=== PATIENT | male | born 1970 | race Hispanic/Latino ===

== ENCOUNTER 2017-12-10 00:32 | Emergency (ER) | payer OTHER ==
[2017-12-10] MEDS ORDERED: ONDANSETRON HCL MDV 20ML 2 MG/ML VIAL ONE (00:42)
[2017-12-10] MEDS ORDERED: SUCRALFATE 1 GM TABLET ONE (00:43)
[2017-12-10] MEDS ORDERED: ACETAMINOPHEN 325 MG TAB ONE (00:43)
[2017-12-10 01:07] LABS: BASOPHILS % (AUTO) 0.2 % (0.0-5.0); EOSINOPHILS % (AUTO) 1.4 % (0.0-8.0); HEMATOCRIT 42.4 % (42-54); LYMPHOCYTES % (AUTO) 6.2 % (21.0-51.0); MEAN CORPUSCULAR HEMOGLOBIN 28.4 pg (27.0-33.0); MEAN CORPUSCULAR HGB CONC 33.2 g/dL (32.0-36.0); MEAN CORPUSCULAR VOLUME 85.5 fL (79-99); MONOCYTES % (AUTO) 6.8 % (3.0-13.0); NEUTROPHILS % (AUTO) 85.4 % (40.0-77.0); PLATELET COUNT (AUTO) 238 K/uL (130-400); RED BLOOD CELL COUNT(AUTO) 4.96 MIL/uL (4.50-6.20); RED CELL DISTRIBUTION WIDTH 14.7 % (11.0-15.5); WHITE BLOOD COUNT (AUTO) 10.1 K/uL (4.8-10.8)
[2017-12-10 01:30] LABS: CREATINE KINASE MB 2.9 ng/mL (0.5-3.6)
== END 2017-12-10 06:03 | disposition home or self-care (01) ==
LOC: EDH 00:32
DX: R07.9 Chest pain, unspecified (principal); I10 Essential (primary) hypertension; E78.5 Hyperlipidemia, unspecified; I25.10 Atherosclerotic heart disease of native coronary artery without angina pectoris; I25.2 Old myocardial infarction
CPT/HCPCS: 36415; 82550; 82553; 83690; 84484; 85025; 93005; 96374; 99291

== ENCOUNTER 2024-08-28 13:37 | Emergency (ER) | payer OTHER ==
[~2024-08-28] VITALS: Ht 175.3 cm; Wt 140.6 kg
[~2024-08-28 13:37] MED LIST: AEC81 PO; ATOR-2 PO; DAPA1TAB5 PO; FERR324T4 PO; GABA300C PO; LISI2.5T13 PO; METF-444 PO; METO25TA3 PO; OMEP40CA21 PO; TICA90TA PO
--- NOTE | 2024-08-28 13:48 | ERN ---
General Chief Complaint: Chest Pain Stated Complaint: CP, EPIGASTRIC PAIN Time Seen by MD: 13:38 History of Present Illness Initial Comments 54-year-old male presents to the ED for evaluation of chest pain onset this morning. Patient reports shortness a breath and epigastric discomfort, but denies any other associated symptoms at this time. Patient mentioned he had a heart attack 1 month ago and had 2 stents placed. Patient mentioned he began with shortness a breath 4 days after stents were placed but that today symptoms worsened. Patient mentioned he has history of states apnea and is on CPAP at home. Allergies: Coded Allergies: No Known Allergies (Unverified Allergy, Unknown, 07/22/24) Home Meds Active Scripts Metoprolol Succinate (Toprol Xl) 25 Mg Tab.er.24h, 25 MG PO DAILY, #60 TAB Prov:YUE BELTRAN [facility] 07/28/24 Ticagrelor (Brilinta) 90 Mg Tablet, 90 MG PO BID, #60 TAB Prov:YUE BELTRAN [facility] 07/28/24 Ferrous Sulfate (Ferrous Sulfate) 324 Mg (65 Mg Iron) Tablet.dr, 325 MG PO DAILY, #60 TAB Prov:YUE BELTRAN [facility] 07/28/24 Aspirin (ASPIRIN 81 MG ECTAB) 81 Mg Ectab, 81 MG PO DAILY, #60 TAB.EC Prov:YUE BELTRAN [facility] 07/28/24 Reported Medications Atorvastatin Calcium (Atorvastatin Calcium) 80 Mg Tablet, 1 TAB PO DAILY for 30 Days, #30 TAB 0 Refills 07/23/24 Metformin HCl (Metformin HCl) 500 Mg Tablet, 1 TAB PO BID for 30 Days, #60 TAB 0 Refills 07/23/24 Gabapentin (Neurontin) 300 Mg Capsule, 2 CAP PO HS for 30 Days, #90 CAP 0 Refills 07/23/24 Omeprazole (Omeprazole) 40 Mg Capsule.dr, 1 CAP PO BIDLUNCHDINNER for 30 Days, #30 CAP 0 Refills 07/23/24 Lisinopril (Lisinopril) 2.5 Mg Tablet, 1 TAB PO DAILY for 30 Days, #30 TAB 0 Refills 07/23/24 Dapagliflozin/Metformin HCl (Xigduo Xr 10 mg-1,000 mg Tab) 10 Mg-1,000 Mg Tab.bp.24h, 1 TAB PO DAILY for diabetes for 30 Days, #30 TAB 0 Refills 07/23/24 Past Medical History Past Medical History: Diabetes-Type II, High Cholesterol, Heart Disease, Hypertension Past Surgical History: Other Surgical History Other: STENTS X 3 ROS Dictation Constitutional: Negative for fever,chills, and weight loss Eyes: Negative for injury, pain,redness, and discharge ENT: Negative for injury,pain or swelling Cardiovascular: Positive for chest pain negative for palpitations, and edema Respiratory: Positive for shortness a breath negative for cough, and wheezing, Abdomen/GI: Negative for abdominal pain, nausea, vomiting, diarrhea, and constipation Back: Negative for injury and pain : Negative for injury, bleeding and discharge MS/Extremity: Negative for injury and deformity Skin: Negative for rash, and discoloration Neuro: Negative for headache, weakness, numbness, tingling, and seizure Psych: Negative for suicide ideation, homicidal ideation, and hallucinations Physical Exam Physical Exam Dictation General: awake, alert, NAD Head/Face: Normocephalic, atraumatic Eyes: PERRL, EOMI, vision at baseline ENT: oral cavity clear, TMs clear, no signs of infection Neck: Trachea midline, supple, no nuchal rigidity Cardiovascular: RRR, normal S1/S2, No MRGs, no JVD Respiratory: CTAB, no respiratory distress, No rales or wheezes Abdomen: Soft, mild epigastric tenderness, non-distended, normal bowel sounds, no guarding or rebound. Skin: Warm, dry, normal turgor, no rash MS/Extremity: Pulses equal, no cyanosis, neurovascular intact, FROM Neuro: COAx4, GCS 15, strength 5/5, CN 2-12 intact, normal cerebellar exam, normal gait, Psych: Normal behavior, mood, and affect normal Results Laboratory and Microbiology Lab and Micro Result Laboratory Tests Test 08/28/24 14:03 08/28/24 16:30 White Blood Count 5.9 K/uL (4.8-10.8) Red Blood Count 4.77 MIL/uL (4.50-6.20) Hemoglobin 13.2 g/dL (14.0-18.0) L Hematocrit 40.7 % (42-54) L Mean Corpuscular Volume 85.3 fL (79-99) Mean Corpuscular Hemoglobin 27.7 pg (27.0-33.0) Mean Corpuscular Hemoglobin Concent 32.4 g/dL (32.0-36.0) Red Cell Distribution Width 14.8 % (11.0-15.5) Platelet Count 191 K/uL (130-400) Mean Platelet Volume 11.3 fL (7.5-10.5) H Immature Granulocyte % (Auto) 0.8 % (0-1) Neutrophils (%) (Auto) 71.7 % (40.0-77.0) Lymphocytes (%) (Auto) 14.3 % (21.0-51.0) L Monocytes (%) (Auto) 6.6 % (3.0-13.0) Eosinophils (%) (Auto) 5.9 % (0.0-8.0) Basophils (%) (Auto) 0.7 % (0.0-5.0) Neutrophils # (Auto) 4.3 K/uL (1.8-7.7) Lymphocytes # (Auto) 0.9 K/uL (1.0-4.8) L Monocytes # (Auto) 0.4 K/uL (0.1-1.0) Eosinophils # (Auto) 0.35 K/uL (0.00-0.70) Basophils # (Auto) 0.04 K/uL (0.00-0.20) Absolute Immature Granulocyte (auto 0.05 K/uL (0-1) Nucleated Red Blood Cells 0.0 % (0.0-0.19) Sodium Level 139 mmol/L (136-145) Potassium Level 4.6 mmol/L (3.5-5.1) Chloride Level 105 mmol/L (101-111) Carbon Dioxide Level 26 mmol/L (21-32) Blood Urea Nitrogen 13 mg/dL (7-18) Creatinine 1.1 mg/dL (0.5-1.3) Glomerular Filtration Rate Calc 79 mL/min (>90) Random Glucose 257 mg/dL (70-105) H Total Calcium 8.8 mg/dL (8.5-10.1) Total Creatine Kinase 160 U/L (21-232) Troponin I High Sensitivity 8 ng/L (4-75) 6 ng/L (4-75) B-Type Natriuretic Peptide 12 pg/mL (0-100) Labs Reviewed?: Yes EKG/XRAY/US/CT/MRI EKG Comment EKG 08/28/2024 time 1:31 p.m. ventricular rate 84, sinus rhythm, left anterior fascicular block, TX 170. QRS D 93, QT 389. No STEMI MDM MDM: Differential diagnosis: GERD, gastritis, shortness a breath Previous outside records reviewed: Old ER visits. Need for hospitalization: Patient does not meet criteria for hospitalization. Need for emergency major/minor surgery: No Patient's prior external medical records from other ER visits were reviewed by me as indicated. Prior testing and results from previous visits were reviewed. Prior tests were taken into account with medical decision making and resource utilization, independent historian/historians were used to obtain complete medical history. I independently interpreted the test that were performed, results were reviewed by me and considered findings on radiology if ordered. Medical management and examination interpretation discussions were had by me wit h other qualified healthcare professionals as indicated for the patient's care. ED Course Orders Procedure Category Date Status Time Vital Signs Per CPOE 08/28/24 Transmitted Routine 13:40 B-Type Natriuretic LAB 08/28/24 Complete Peptide 13:40 Chest 1vw RAD 08/28/24 Resulted 13:40 12 Lead Ekg Tracing- EKG 08/28/24 Complete Technical 13:40 Oxygen By Nc/Pulse Ox CPOE 08/28/24 Transmitted 13:40 Maintain Iv CPOE 08/28/24 Transmitted 13:40 Iv Insertion CPOE 08/28/24 Transmitted 13:40 Cardiac Monitoring CPOE 08/28/24 Transmitted 13:40 Pulse Oximetry With CPOE 08/28/24 Transmitted Vs And Prn 13:40 Cbc With Differential LAB 08/28/24 Complete 13:40 Activity: Br W/Brp CPOE 08/28/24 Transmitted With Assist 13:40 Creatine Kinase, Total LAB 08/28/24 Complete 13:40 Urinalysis Profile LAB 08/28/24 Logged 13:40 Bedside Troponin-I LAB.ER 08/28/24 In Process (Poc) 13:40 Basic Metabolic Panel LAB 08/28/24 Complete 13:40 Troponin I High LAB 08/28/24 Complete Sensitivity 13:45 Troponin I High LAB 08/28/24 Complete Sensitivity 15:56 Lidocaine Hcl 2% PHA 08/28/24 In Process Viscous (Lidocaine Hcl 18:30 Mag/Alum/Simeth 30ml PHA 08/28/24 In Process (Maalox Plus 30ml) 18:30 Pantoprazole 40mg Inj PHA 08/28/24 In Process (Protonix 40mg Inj 18:30 Current Medications Medications (Trade) Dose Ordered Sig/Karla Route PRN Reason Start Time Stop Time Status Last Admin Dose Admin Al Hydroxide/Mg Hydroxide (MAALox PLUS 30ML) 30 ml ONCE ONCE PO 08/28/24 18:30 08/28/24 18:31 08/28/24 18:21 Lidocaine HCl (Lidocaine HCl 2% Viscous) 10 ml ONCE ONCE PO 08/28/24 18:30 08/28/24 18:31 08/28/24 18:21 Pantoprazole Sodium (PROTonix 40MG INJ) 40 mg ONCE ONCE IVP 08/28/24 18:30 08/28/24 18:31 Vital Signs Date Time Temp Pulse Resp B/P (MAP) Pulse Ox O2 Delivery O2 Flow Rate FiO2 08/28/24 13:38 97.5 81 16 121/73 97 Room Air 0 HEART Score Response (Comments) Value History: Moderate suspicion (+1) 1 EKG: Normal 0 Age: 45-65yrs (+1) 1 Risk Factors: 1-2 risk factors (+1) 1 Initial Troponin: Normal limit (0) 0 HEART Score Risk: Low Risk for MACE (1-3) Total 3 DX & DISP Disposition: Discharge Departure Impression: Primary Impression: GERD (gastroesophageal reflux disease) Additional Impression: Gastritis Condition: Stable Scripts Pantoprazole Sodium (Protonix) 40 Mg Ectab 1 TAB PO DAILY for 30 Days, #30 TAB 0 Refills Prov: NIKHIL RAI MD 08/28/24 Additional Instructions: You have been reviewed in the emergency department at [facility] after presenting with chest pain. After considering your history, your risk factors, your EKG and your blood test troponins, have been found to be at very low risk less than (1 in 100) of having a major adverse cardiac event (like heart attack) in the near future. In the " low risk" group, the risks of doing further tests and treatment as the inpatient outweighs the benefits. In many patients in the low risk group for the test of any sort or unnecessary, however he should discuss this further with his general practitioner who will understand the medical and personal backgrounds better. Because we have never declared you" no risk" we would suggest. 1 returning for medical review if you have further episodes of chest pain/arm pain or other concerning symptoms like dizziness, collapse, palpitations or shortness of breath. 2. Following up with your local doctor who will consider the need for further testing and will also ensure that any modifiable risk factors you may have for heart disease are optimally managed. Patient will be discharged in stable condition at the moment discharge patient states , no chest pain Referrals: PEDRO BOONE MD (PCP) Time of Disposition: 18:26 I have reviewed, & agreed with my scribe's, documentation. (Entered by Soco [place], acting as a scribe for Dr. Rai) I personally scribed for NIKHIL RAI MD ([email or web address]) on 08/28/24 at 13:48. Electronically submitted by Soco [place] ([email or web address]). I personally scribed for NIKHIL RAI MD ([email or web address]) on 08/28/24 at 16:45. Electronically submitted by Soco [place] ([email or web address]). NIKHIL RAI MD Aug 28, 2024 13:48
[2024-08-28 14:22] LABS: BASOPHILS # (AUTO) 0.04 K/uL (0.00-0.20); BASOPHILS % (AUTO) 0.7 % (0.0-5.0); EOSINOPHILS # (AUTO) 0.35 K/uL (0.00-0.70); EOSINOPHILS % (AUTO) 5.9 % (0.0-8.0); HEMATOCRIT 40.7 % (42-54); IMMATURE GRANULOCYTE ABSOLUTE 0.05 K/uL (0-1); LYMPHOCYTES # (AUTO) 0.9 K/uL (1.0-4.8); LYMPHOCYTES % (AUTO) 14.3 % (21.0-51.0); MEAN CORPUSCULAR HEMOGLOBIN 27.7 pg (27.0-33.0); MEAN CORPUSCULAR HGB CONC 32.4 g/dL (32.0-36.0); MEAN CORPUSCULAR VOLUME 85.3 fL (79-99); MONOCYTES # (AUTO) 0.4 K/uL (0.1-1.0); MONOCYTES % (AUTO) 6.6 % (3.0-13.0); NEUTROPHILS # (AUTO) 4.3 K/uL (1.8-7.7); NEUTROPHILS % (AUTO) 71.7 % (40.0-77.0); PLATELET COUNT (AUTO) 191 K/uL (130-400); RED BLOOD CELL COUNT(AUTO) 4.77 MIL/uL (4.50-6.20); RED CELL DISTRIBUTION WIDTH 14.8 % (11.0-15.5); WHITE BLOOD COUNT (AUTO) 5.9 K/uL (4.8-10.8)
[2024-08-28 14:36] LABS: CREATININE 1.1 mg/dL (0.5-1.3); POTASSIUM 4.6 mmol/L (3.5-5.1)
--- NOTE | 2024-08-28 15:21 | HMCIMG ---
CHEST 1VW HISTORY: Chest pain COMPARISON: 07/27/2024 FINDINGS: A frontal projection of the chest was obtained. No acute pulmonary infiltrates is seen. The heart is borderline enlarged. Prominent interstitial markings are seen. No evidence of aortic calcification is seen. IMPRESSION: 1. No acute pulmonary infiltrate is seen.
--- NOTE | 2024-08-28 15:24 | EKG ---
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
[2024-08-28 16:47] LABS: B-TYPE NATRIURETIC PEPTIDE 12 pg/mL (0-100)
[2024-08-28] MEDS: MAG/ALUM/SIMETH 30 ML UDCUP PO ONE (18:21)
[2024-08-28] MEDS: LIDOCAINE HCL 2% VISCOUS 15 ML UDCUP PO ONE (18:21)
[2024-08-28] MEDS ORDERED: PANT40TA55 PO (18:28)
[2024-08-28] MEDS ORDERED: PANTOPrazole 40 MG/VIAL IVP ONE (18:30)
[2024-08-28 18:44] VITALS: BP 123/76; PULSE 71; RESP 16; TEMP 98.2; O2SAT 100
== END 2024-08-28 19:02 | disposition home or self-care (01) ==
LOC: EDH 13:37
DX: K21.9 Gastro-esophageal reflux disease without esophagitis (principal); K29.70 Gastritis, unspecified, without bleeding; E11.9 Type 2 diabetes mellitus without complications; E78.00 Pure hypercholesterolemia, unspecified; I10 Essential (primary) hypertension; Z79.02 Long term (current) use of antithrombotics/antiplatelets; Z79.82 Long term (current) use of aspirin; Z79.84 Long term (current) use of oral hypoglycemic drugs; Z79.899 Other long term (current) drug therapy
CPT/HCPCS: 36415; 71045; 80048; 82550; 83880; 84484; 85025; 93005; 99285